=== PATIENT | female | born 1935 | race Caucasian/White ===

== ENCOUNTER 2016-11-06 15:24 | Emergency (ER) | payer MEDICARE, OTHER ==
[~2016-11-06] VITALS: Ht 160 cm; Wt 68.5 kg
[~2016-11-06 15:24] MED LIST: ACT35 PO; APIX2.5T PO; CIPR500T4 PO; DOCU-144 PO; FAMO-96 PO; FLUT9.9S NASAL; HYDR-902 PO
[2016-11-06 15:30] VITALS: Ht 160 cm; Wt 68.5 kg
[2016-11-06 19:52] LABS: BASOPHIL # 0.1 10^3/ul (0.0-0.1); BASOPHILS % 0.8 % (0.0-2.0); EOSINOPHILS # 0.3 10^3/ul (0.0-0.5); HEMATOCRIT 42.5 % (37.0-47.0); HEMOGLOBIN 13.9 g/dl (12.0-16.0); LYMPHOCYTES % 36.3 % (15.0-51.0); MEAN CORPUSCULAR HEMOGLOBIN 28.3 pg (29.0-33.0); MEAN CORPUSCULAR HGB CONC 32.7 g/dl (32.0-37.0); MEAN CORPUSCULAR VOLUME 86.4 fl (82.0-101.0); MEAN PLATELET VOLUME 10.2 fl (7.4-10.4); MONOCYTE # 0.6 10^3/ul (0.3-0.9); NEUTROPHIL # 4.3 10^3/ul (1.6-7.5); NEUTROPHILS % 52.7 % (39.0-77.0); PLATELET COUNT 216 10^3/UL (140-415); RED BLOOD COUNT 4.92 10^6/ul (4.20-5.40); RED CELL DISTRIBUTION WIDTH 13.5 % (11.5-14.5); WHITE BLOOD COUNT 8.2 10^3/ul (4.8-10.8)
--- NOTE | 2016-11-06 20:08 | ERA ---
ER Documentation Chief Complaint Date/Time DATE: 11/06/16 TIME: 19:58 Chief Complaint Sent from Clinic day care for eval SOB, wheezing HPI This is an 80-year-old female with past medical history of atrial fibrillation complicated by previous stroke with resolved right-sided deficits, previous PE, on Eliquis, multiple sclerosis with left eye blindness, kidney resection as an secondary to infection, colon cancer status post resection and chemoradiation who is presenting with an episode of worsening shortness of breath today, resolved now, bilateral lower extremity edema and "fluid on the lungs" for 1-2 days. She reports that difficulty with inspiration, with the feeling that she could not breath air in. She was evaluated at her day center today where they were concerned about "fluid on her lungs" and wheezing. They sent her here for further evaluation. The patient is not feeling sick. She does not endorse fever or chills. She does not endorse a cough. She does not endorse chest pain. She denies nausea or vomiting. She does endorse suprapubic discomfort, but she denies changes to bowel movements or urination. She has no pain or burning or bleeding with urination. She does wear a depends, and is frequently incontinent. She denies any focal deficits today. She has no weakness or numbness or tingling to the face or extremities. ROS All systems reviewed and are negative except as per history of present illness. Medications Home Meds Reported Medications Apixaban* (Eliquis*) 2.5 Mg Tablet, 2.5 MG PO DAILY, TAB 02/01/16 Discontinued Reported Medications Fluticasone Propionate (Flonase Allergy Relief) 9.9 Ml [place].susp, 2 SPRAY NASAL DAILY, #1 BOTTLE TO EACH NOSTRIL 02/01/16 Famotidine* (Pepcid*) 20 Mg Tablet, 20 MG PO DAILY, #30 TAB 02/01/16 Risedronate* (Actonel*) 35 Mg Tablet, 35 MG PO Q7D, #4 TAB 02/01/16 Discontinued Scripts Docusate Sodium* (Colace*) 100 Mg Capsule, 100 MG PO TID, #30 CAP Prov:WARD MCBRIDE MD 02/01/16 Hydrocodone/Acetaminophen ([place] 10-325 Tablet) 1 Each Tablet, 1 TAB PO Q6H Y for PAIN, #12 TAB Prov:WARD MCBRIDE MD 02/01/16 Ciprofloxacin Hcl* (Ciprofloxacin Hcl*) 500 Mg Tablet, 500 MG PO BID for 14 Days , TAB Prov:WARD MCBRIDE MD 02/01/16 Allergies Allergies: Coded Allergies: No Known Allergy (Unverified , 11/06/16) PMhx/Soc History of Surgery: Yes (Nephrectomy) Anesthesia Reaction: No Hx Neurological Disorder: Yes (HX OF MULTIPLE SCLEROSIS, CVA) Hx Respiratory Disorders: No Hx Psychiatric Problems: Yes (HX OF DEMENTIA) Hx Alcohol Use: No Hx Substance Use: No Hx Tobacco Use: Yes Smoking Status: Never smoker FmHx Family History: diabetes Physical Exam Vitals Vital Signs Date Time Temp Pulse Resp B/P Pulse Ox O2 Delivery O2 Flow Rate FiO2 11/07/16 00:08 98.2 101 20 154/79 99 Room Air 11/06/16 19:44 98.2 126 20 167/74 99 Room Air 11/06/16 15:30 97.8 94 20 143/67 99 Physical Exam Const: NAD, Well developed Head: Atraumatic Eyes: Normal Conjunctiva ENT: Normal External Ears, Nose and Mouth. Neck: Full range of motion. ~ No meningismus. Resp: Bibasilar Coarse Rales Cardio: Regular rate and rhythm, intermittent transient sinus arrythmia on the monitor, no murmurs Abd: Soft, non distended, suprapubic tenderness. Normal bowel sounds Skin: No petechiae or rashes Back: No midline or flank tenderness Ext: No cyanosis, BLE edema (chronic, unchanged per report) Neur: Awake and alert, L eye blindness, normal sensation, normal strength Psych: Normal Mood and Affect Result Diagram: 11/06/16192911/06/161929 Results 24 hrs Laboratory Tests Test 11/06/16 19:30 11/06/16 19:34 11/06/16 23:15 11/06/16 23:28 White Blood Count 8.210^3/ul Red Blood Count 4.9210^6/ul Hemoglobin 13.9g/dl Hematocrit 42.5% Mean Corpuscular Volume 86.4fl Mean Corpuscular Hemoglobin 28.3pg Mean Corpuscular Hemoglobin Concent 32.7g/dl Red Cell Distribution Width 13.5% Platelet Count 99766^3/UL Mean Platelet Volume 10.2fl Neutrophils % 52.7% Lymphocytes % 36.3% Monocytes % 7.0% Eosinophils % 3.0% Basophils % 0.8% Nucleated Red Blood Cells % 0.0/100WBC Neutrophils # 4.310^3/ul Lymphocytes # 3.010^3/ul Monocytes # 0.610^3/ul Eosinophils # 0.310^3/ul Basophils # 0.110^3/ul Nucleated Red Blood Cells # 0.010^3/ul Sodium Level 140mmol/L Potassium Level 4.2mmol/L Chloride Level 104mmol/L Carbon Dioxide Level 28mmol/L Anion Gap 12 Blood Urea Nitrogen 11mg/dl Creatinine 0.61mg/dl Glucose Level 90mg/dl Calcium Level 9.1mg/dl Total Bilirubin 0.3mg/dl Direct Bilirubin 0.00mg/dl Indirect Bilirubin 0.3mg/dl Aspartate Amino Transf (AST/SGOT) 24IU/L Alanine Aminotransferase (ALT/SGPT) 25IU/L Alkaline Phosphatase 98IU/L Troponin I < 0.012ng/ml B-Type Natriuretic Peptide 154PG/ML Total Protein 8.1g/dl Albumin 4.1g/dl Globulin 4.00g/dl Albumin/Globulin Ratio 1.02 Prothrombin Time 12.9Sec Prothrombin Time Ratio 1.0 INR International Normalized Ratio 0.97 Activated Partial Thromboplast Time 31.2Sec D-Dimer 725.90ng/ml D-Dimer Comment Urine Color STRAW Urine Clarity CLEAR Urine pH 8.0 Urine Specific [place] 1.005 Urine Ketones NEGATIVEmg/dL Urine Nitrite NEGATIVEmg/dL Urine Bilirubin NEGATIVEmg/dL Urine Urobilinogen NEGATIVEmg/dL Urine Leukocyte Esterase NEGATIVELeu/ul Urine Hemoglobin NEGATIVEmg/dL Urine Glucose NEGATIVEmg/dL Urine Total Protein NEGATIVEmg/dl Bedside Urine pH (LAB) 7.5 Bedside Urine Protein (LAB) Negative Bedside Urine Glucose (UA) Negative Bedside Urine Ketones (LAB) Negative Bedside Urine Blood Trace-intact Bedside Urine Nitrite (LAB) Negative Bedside Urine Leukocyte Esterase (L Negative Procedures/MDM MDM Patient's presentation warrants further investigation. The patient has physical exam findings that are concerning for heart failure. They could also be associated with renal dysfunction. The patient is intermittently tachycardic with an irregular rhythm that was not caught on the EKG. It appears to be sinus with a sinus arrhythmia on the monitor. The patient does not endorse pleuritic chest pain, but she has had a pulmonary embolism in the past. This will likely need to be worked up as well. It is reassuring that the patient is on Eliquis regularly. A d-dimer will be sent off. LABS The patient's blood work was obtained and reviewed. The patient seemed shows no leukocytosis or left shift. The patient is afebrile, and I do not suspect a systemic infection. The patient is not anemic today. The patient's platelet count is unremarkable. The patient's CMP shows no signs of metabolic or electrolyte abnormality. The patient has normal renal and hepatic function testing. The patient D-dimer is unremarkable when adjusted for her age. Her BNP and troponin are negative. Her UA shows no signs of hematuria or infection. EKG EKG read by me: Rate/Rhythm: Regular rate and rhythm at a rate of 82 Intervals: Normal [place]: Normal Impression: No evidence of acute ischemia or arrhythmia IMAGING CXR FINDINGS: There is stable mild cardiomegaly and an sclerotic aortic calcification. The pulmonary vessels are normal in caliber. Lung volumes are low with mild basilar atelectasis. Costophrenic angles sharp. Bones are osteopenic. IMPRESSION: No acute cardiopulmonary disease. Mild cardiomegaly and atherosclerotic aortic calcification. Low lung volumes Electronically viewed and signed by .Kurt Cruz MD, on 11/06/2016 21:00 TREATMENT/DISPOSITION The patient's presenting with a transient episode of shortness of breath. Her chest x-ray and BNP did not correlate with an acute exacerbation. On room air, the patient is oxygenating between 97 and 100%. She is not tachypneic. I have low suspicion at this time for an acute heart failure exacerbation. The patient does have rales and edema, but this is unchanged for her. The patient does reportedly have a history of PE in the past, but she is currently on Eliquis as an anticoagulant. Her d-dimer is also within normal limits and adjusted for her age. I have low suspicion for pulmonary embolism at this time. I do not see any findings consistent with a pneumonia or pleural effusion or pneumothorax. Bronchitis is a possibility, but this may be treated symptomatically as an outpatient. The patient did have transient episodes of sinus arrhythmia with increased heart rate. However, this resolved almost immediately. It was not A. fib with rapid ventricular response. I do not feel that this requires further treatment at this time. Patient had a secondary complaint of suprapubic tenderness. Her CMP is unremarkable and her urine does not show any signs of infection that would require treatment. She does not have a pulsatile mass. A low suspicion for AAA. Her abdomen is soft and nondistended. I do not suspect viscus perforation or mesenteric ischemia or ischemic colitis. After observation, the patient remained stable. She needs to follow-up with her primary care physician for reevaluation. That said, the patient stable for discharge at this time. She was discharged under the care of her son who takes care of her at home. He understands the need to follow-up. He was given precautions with which to bring her back to the emergency department. Departure Diagnosis: Primary Impression: Shortness of breath Additional Impression: Fatigue Qualified Code: R53.83 - Fatigue, unspecified type Condition: ARASH Victoria MD Nov 06, 2016 20:08
[2016-11-06 20:15] LABS: ALANINE AMINOTRANSFERASE 25 IU/L (13-69); ALBUMIN 4.1 g/dl (3.3-4.9); ALBUMIN/GLOBULIN RATIO 1.02; ALKALINE PHOSPHATASE 98 IU/L (42-121); ANION GAP 12 (8-16); ASPARTATE AMINO TRANSFERASE 24 IU/L (15-46); BILIRUBIN,INDIRECT 0.3 mg/dl (0-1.1); BILIRUBIN,TOTAL 0.3 mg/dl (0.2-1.3); BLOOD UREA NITROGEN 11 mg/dl (7-20); CALCIUM 9.1 mg/dl (8.4-10.2); CARBON DIOXIDE 28 mmol/L (21-31); CHLORIDE 104 mmol/L (97-110); CREATININE 0.61 mg/dl (0.44-1.00); GLUCOSE 90 mg/dl (70-220); POTASSIUM 4.2 mmol/L (3.5-5.1); SODIUM 140 mmol/L (135-144); TOTAL PROTEIN 8.1 g/dl (6.1-8.1)
[2016-11-06 20:27] LABS: B-TYPE NATRIURETIC PEPTIDE 154 PG/ML (0-450); TROPONIN-I < 0.012 ng/ml (0.00-0.12)
--- NOTE | 2016-11-06 21:00 | RADRPT ---
PROCEDURE: Chest x-ray CLINICAL INDICATION: Chest pain TECHNIQUE: Chest single view COMPARISON: 02/01/2015 FINDINGS: There is stable mild cardiomegaly and an sclerotic aortic calcification. The pulmonary vessels are n ormal in caliber. Lung volumes are low with mild basilar atelectasis. Costophrenic angles sharp. Jareth johnny are osteopenic. IMPRESSION: No acute cardiopulmonary disease. Mild cardiomegaly and atherosclerotic aortic calcification Low lung volumes RPTAT: HH .Kurt Cruz MD, MD Date Time Electronically viewed and signed by .Kurt Cruz MD, MD on 11/06/2016 21:00 .W/
[2016-11-06 21:31] LABS: INR 0.97; PROTIME 12.9 Sec (12.2-14.2)
[2016-11-06 21:32] LABS: PARTIAL THROMBOPLASTIN TIME 31.2 Sec (25.0-35.0)
[2016-11-06 21:58] LABS: D-DIMER 725.9 ng/ml (<460)
[2016-11-06 23:21] LABS: URINE BLOOD (Dip) POC Trace-intact (NEGATIVE)
[2016-11-07 00:08] VITALS: BP 154/79; PULSE 101; RESP 20; TEMP 98.2
[2016-11-07 00:12] LABS: ADD UMIC NO; UR ASCORBIC ACID NEGATIVE (NEGATIVE); UR BILIRUBIN (Dip) NEGATIVE (NEGATIVE); UR BLOOD (Dip) NEGATIVE (NEGATIVE); UR CLARITY CLEAR (CLEAR); UR COLOR STRAW (YELLOW); UR GLUCOSE (Dip) NEGATIVE (NEGATIVE); UR KETONES (Dip) NEGATIVE (NEGATIVE); UR LEUKOCYTE ESTERASE (Dip) NEGATIVE Leu/ul (NEGATIVE); UR NITRITE (Dip) NEGATIVE (NEGATIVE); UR SPECIFIC GRAVITY (Dip) 1.005 (1.003-1.030); UR TOTAL PROTEIN (Dip) NEGATIVE (NEGATIVE); UR UROBILINOGEN (Dip) NEGATIVE (NEGATIVE)
== END 2016-11-07 00:10 | disposition home or self-care (01) ==
LOC: E/R 15:24
DX: R06.02 Shortness of breath (principal); R53.83 Other fatigue; Z87.891 Personal history of nicotine dependence
CPT/HCPCS: 36415; 71010; 80053; 81003; 83880; 84484; 85025; 85378; 85610; 85730; 93005; 99285; P9612

== ENCOUNTER 2017-05-28 07:06 | Day surgery (SDC) | END 2017-05-28 12:52 | disposition home or self-care (01) ==

== ENCOUNTER 2017-08-29 11:52 | Inpatient (IN) | END 2017-08-31 20:00 | DRG 583 ==